=== PATIENT | male | born 1965 | race Caucasian/White ===

== ENCOUNTER 2020-07-12 00:35 | Inpatient (IN) | payer OTHER ==
[~2020-07-12] VITALS: Ht 172.7 cm; Wt 77.1 kg
[2020-07-12 00:48] VITALS: BP 157/74
--- NOTE | 2020-07-12 01:03 | NUR ---
ERMD AT BEDSIDE.
--- NOTE | 2020-07-12 01:06 | NUR ---
55 Y/O TRANS MALE TO FEMALE PRESENTED TO ED C/O EPIGASTRIC PAIN X 2 DAYS. PT STATES SHE WENT TO URGENT CARE AND RECEIVED RX OMEZOPROLE BUT HAS NOT FILLED THE RX YET. PT DENIES N/V/D/FEVER/BODY ACHES / CHILLS. PT ABD FLAT, SOFT AND NONTENDER. NORMOACTIVE BOWEL SOUNDS. A/O X4 , RR EVEN AND UNLABORED, SKIN WARM, PINK AND DRY. PT PLACED IN GOWN. PT RESTING IN BED LOCKED AND IN LOWEST POSITION, HOB ELEVATED, SIDE RAIL X2 FOR PT SAFETY. PMH: HTN, HYPOTHYROIDISM NKA
[2020-07-12] MEDS ORDERED: MORPHINE SULFATE 4 MG/ML SYR IVP ONE ×2 (01:10→03:05)
[2020-07-12] MEDS ORDERED: ONDANSETRON 4 MG/2 ML VIAL IVP ONE ×2 (01:10→03:05)
[2020-07-12 01:47] LABS: BASOPHILS % (AUTO) 0.2 % (0.0-2.0); EOSINOPHILS % (AUTO) 0.2 % (0.0-4.0); HEMOGLOBIN 15.3 g/dL (12.0-18.0); LYMPHOCYTES # (AUTO) 1.1 K/uL (2.0-11.5); LYMPHOCYTES % (AUTO) 7.9 % (20.5-51.1); MEAN CORPUSCULAR HEMOGLOBIN 29 pg (27-31); MEAN CORPUSCULAR HGB CONC 33 g/dL (33-37); MEAN CORPUSCULAR VOLUME 88.1 fL (80-94); MONOCYTES % (AUTO) 7.1 % (1.7-9.3); NEUTROPHILS # (AUTO) 12.1 K/uL (1.8-7.7); NEUTROPHILS % (AUTO) 84.6 % (42.2-75.2); PLATELET COUNT (AUTO) 258 K/uL (140-450); RED BLOOD CELL COUNT(AUTO) 5.22 MIL/uL (4.20-6.10); RED CELL DISTRIBUTION WIDTH 13.3 % (11.6-13.7); WHITE BLOOD COUNT (AUTO) 14.3 K/uL (4.8-10.8)
--- NOTE | 2020-07-12 02:00 | NUR ---
US AT BEDSIDE.
[2020-07-12 02:04] LABS: ALBUMIN 3.8 g/dL (3.4-5.0); ANION GAP 12.5 (8-16); CARBON DIOXIDE 28.4 mmol/L (21-32); CREATININE 0.9 mg/dL (0.6-1.3); POTASSIUM 3.9 mmol/L (3.5-5.1); TOTAL BILIRUBIN 0.6 mg/dL (0.0-1.0)
[2020-07-12 02:17] LABS: APPEARANCE,URINE CLEAR (CLEAR); BILIRUBIN,URINE NEGATIVE (NEGATIVE); BLOOD, URINE NEGATIVE (NEGATIVE); COLOR,URINE YELLOW (YELLOW); LEUKOCYTE ESTERASE ,URINE NEGATIVE (NEGATIVE); NITRITE, URINE NEGATIVE (NEGATIVE); UGLUCOSE NEGATIVE (NEGATIVE)
--- NOTE | 2020-07-12 02:33 | NUR ---
PT RESTING IN BED, LOCKED AND IN LOWEST POSITION, HOB ELEVATED, SIDE RAIL X2 FOR PT SAFETY. VISIBLE RISE AND FALL OF CHEST, RR EVEN AND UNLABORED, SAO2 100%, VSS.
[2020-07-12] MEDS ORDERED: KETOROLAC 30 MG/ML VIAL IVP ONE (02:50)
[2020-07-12] MEDS ORDERED: MECL-303 PO (03:21)
[2020-07-12] MEDS ORDERED: ENAL-197 PO (03:21)
[2020-07-12] MEDS ORDERED: SIME80CT43 PO (03:21)
[2020-07-12] MEDS ORDERED: ORE25 PO (03:21)
[2020-07-12] MEDS ORDERED: CITA40TA13 PO (03:21)
[2020-07-12] MEDS ORDERED: CYCL-654 PO (03:21)
[2020-07-12] MEDS ORDERED: FIO PO (03:21)
[2020-07-12] MEDS ORDERED: MELO15TA11 PO (03:21)
[2020-07-12] MEDS ORDERED: TRAM50TA1 PO (03:21)
--- NOTE | 2020-07-12 03:40 | NUR ---
PT ADMITTED TO TELEMETRY ROOM # 116.
--- NOTE | 2020-07-12 04:15 | NUR ---
PT SLEEPING IN BED, LOCKED AND IN LOWEST POSITION ,HOB ELEVATED, SIDE RAIL X2 FOR PT SAFETY. RR EVEN AND UNLABORED, AROUSABLE TO VERBAL STIMULATION , VSS.
[2020-07-12 04:45] VITALS: BP 147/63
--- NOTE | 2020-07-12 04:45 | NUR ---
Patient will be admitted to care of DR. PIZARRO. Admited to TELEMETRY. Will go to room 116. Belongings list completed. Report to SHAVONNE GERMAIN.
--- NOTE | 2020-07-12 04:45 | NUR ---
RECEIVED FROM ED VIA KELLY, PT Yoko, Yoko O X 4, AMBULATORY PT KISWAHILI CAN SPEAK/ UNDERSTAND GAMBIAN. PT TRANSGENDER AND PREFERRED TO BE CALLED ' ARIES" . PT WITH LEFT AG, PATENT AND INTACT, NO IV INFUSING. MRSA NARES DONE. POC DISCUSSED TO PT, ORIENTED TO UNIT. CALL LIGHT WITHIN REACH.
--- NOTE | 2020-07-12 04:49 | NUR ---
PATIENT CALLED FOR PAIN, EPIGASTIC 08/01. CALLED DR. PIZARRO, AND ORDERED 1 MG DILAUDID ONCE AND A STANDING ORDER OF 2 MG MORPHINE Q 4 PRN FOR SEVERE PAIN -10. WILL CARRY OUT
[2020-07-12] MEDS ORDERED: MORPHINE SULFATE 2 MG/ML SYR IVP PRN ×2 (05:05→06:25)
[2020-07-12] MEDS ORDERED: HYDROmorphone 1 MG/ML AMP IVP SCH (05:05)
[2020-07-12] MEDS ORDERED: HYDROmorphone 1 MG/ML AMP ONE (05:07)
[2020-07-12] MEDS ORDERED: ACETAMINOPHEN 325 MG TAB PO PRN (06:25)
[2020-07-12] MEDS ORDERED: ZOLPIDEM 5 MG TAB PO PRN (06:25)
[2020-07-12] MEDS ORDERED: ONDANSETRON 4 MG/2 ML VIAL IVP PRN (06:25)
[2020-07-12] MEDS ORDERED: DOCUSATE SODIUM 100 MG GELCAP PO PRN (06:25)
[2020-07-12] MEDS ORDERED: LORazepam 2 MG/ML VIAL IM/IVP PRN (06:25)
[2020-07-12] MEDS: DEXT 5% / NACL 0.45% 1,000 ML IV SCH ×2 (06:47→16:25)
--- NOTE | 2020-07-12 06:47 | NUR ---
SCANNED BUT NOT WORKING, VERIFIED W/ PA, RN- D5 12/13 NS AT 100 ML/ HR
--- NOTE | 2020-07-12 07:20 | NUR ---
PT A, A O X 4, PT IN BED, NO RESPIRATORY DISTRESS, DENIES PAIN ,RESTING, WILL ENDORSE TO NEXT SHIFT
--- NOTE | 2020-07-12 07:25 | NUR ---
RECEIVED PT FROM DENTAL SURGEON NURSEMARCELLUS, PT IS AWAKE AND LYING ON THE BED WITH SAFETY PRECAUTION IN PLACE, IV LINE NOTED ON THE LAC G. 20 WITH D5 1/2 NS INFUSING AT 100ML/HR, INTACT, PT IS ON ROOM AIR AND DENIES PAIN AT THIS TIME, WILL CONTINUE TO BE MONITORED
[2020-07-12 08:00] VITALS: BP 144/86
[2020-07-12 08:21] LABS: PROTHROMBIN TIME 9.8 secs (10.8-13.4)
--- NOTE | 2020-07-12 09:10 | NUR ---
PATIENT HAS BEEN SCREENED AND CATEGORIZED MODERATE NUTRITION RISK. PATIENT WILL BE SEEN WITHIN 3-5 DAYS OF ADMISSION. 07/14/20 07/16/[address]
--- NOTE | 2020-07-12 09:40 | NUR ---
PT REQUESTED TO HAVE AN ICE CHIPS NOW.
[2020-07-12] MEDS: HYDROcodone/APAP 5/325 MG 1 TAB TAB PO PRN ×2 (11:52→19:03)
--- NOTE | 2020-07-12 11:52 | NUR ---
PT C/O PAIN RATE OF 6/10 ON THE ABDOMEN AND WAS MEDICATED NOW. WILL MONITOR PT .
[2020-07-12 12:00] VITALS: BP 155/89
[2020-07-12 13:55] LABS: CHOL/HDL RATIO 3.1 (1-4.5); PHOSPHORUS 2.7 mg/dL (2.5-4.9)
[2020-07-12 16:00] VITALS: BP 127/76
--- NOTE | 2020-07-12 16:25 | NUR ---
PT WAS GIVEN A NEW BAG OD D5 1/2 NS NOW.
--- NOTE | 2020-07-12 16:40 | NUR ---
PT IS RESTING, V/S TAKEN AND DENIES PAIN AT THIS TIME.
[2020-07-12] MEDS ORDERED: MECLIZINE 25 MG TAB PO PRN (18:15)
[2020-07-12] MEDS ORDERED: APAP/BUTAL/CAFF 325/50/40 MG 1 TAB PO PRN (18:15)
[2020-07-12 18:53] LABS: BARBITURATE, URINE POSITIVE ng/ml (NEG <=200); BENZODIAZEPINE, URINE NEGATIVE ng/mL (NEG <=200); CANNABINOID, URINE NEGATIVE ng/mL (NEG <=50); COCAINE, URINE NEGATIVE ng/mL (NEG <=300); OPIATE, URINE NEGATIVE ng/mL (NEG <=2000); PHENCYCLIDINE SCREEN,URINE NEGATIVE ng/mL (NEG <=25)
--- NOTE | 2020-07-12 19:25 | NUR ---
ENDORSED PT TO PROMOTION MANAGER, DEBORAH NURSE FOR CONTINUITY OF CARE.
--- NOTE | 2020-07-12 19:26 | NUR ---
RECEIVED BEDSIDE SHIFT REPORT FROM DAY SHIFT NURSE. PATIENT IN BED. AWAKE, ALERT, ORIENTED, AMBULATORY, AND ABLE TO MAKE NEEDS KNOWN. RESPIRATIONS ARE EVEN AND UNLABORED TO ROOM AIR. SKIN IS WARM, DRY, AND INTACT. ABDOMEN IS SOFT AND NON-TENDER. IV ACCESS ON LEFT AC G20 PATENT AND INTACT, IVF INFUSING WELL. PT DENIES ANY PAIN OR DISCOMFORT AT THIS TIME. NO REQUESTS MADE. POC DISCUSSED, PT VERBALIZED UNDERSTANDING. SAFETY MEASURES IN PLACE. CALL LIGHT WITHIN REACH. WILL CONTINUE TO MONITOR.
[2020-07-12 19:45] LABS: FREE T4 (FREE THYROXINE) 0.93 ng/dL (0.76-1.46); THYROID STIMULATING HORMONE 3.25 uIU/mL (0.34-3.74)
[2020-07-12 20:00] VITALS: BP 133/67
--- NOTE | 2020-07-12 20:00 | NUR ---
VITAL SIGNS STABLE. PT IN BED WATCHING TV. DENIES ANY PAIN OR DISCOMFORT AT THIS TIME. PT KEPT COMFORTABLE. CALL LIGHT WITHIN REACH. WILL CONTINUE TO MONITOR.
--- NOTE | 2020-07-12 22:00 | NUR ---
ROUNDS MADE. PT ASLEEP. PT NOT IN DISTRESS. SAFETY MEASURES IN PLACE, CALL LIGHT WITHIN REACH. WILL CONTINUE TO MONITOR.
[2020-07-13] VITALS: BP 111/69
--- NOTE | 2020-07-13 00:16 | NUR ---
VITAL SIGNS STABLE. PT IN BED USING PHONE. PT DENIES ANY PAIN OR DISCOMFORT AT THIS TIME. KEPT COMFORTABLE. CALL LIGHT WITHIN REACH. WILL CONTINUE TO MONITOR.
--- NOTE | 2020-07-13 02:10 | NUR ---
PT ASLEEP. PT NOT IN DISTRESS. RESPIRATIONS EVEN AND UNLABORED. CALL LIGHT WITHIN REACH. WILL CONTINUE TO MONITOR.
[2020-07-13] MEDS: HYDROcodone/APAP 5/325 MG 1 TAB TAB PO PRN ×2 (03:32→11:52)
--- NOTE | 2020-07-13 03:33 | NUR ---
PT VERBALIZED ABDOMINAL PAIN 05/01. PRN PAIN MEDICATION GIVEN ORDERED. WILL CONTINUE TO MONITOR.
[2020-07-13] MEDS: DEXT 5% / NACL 0.45% 1,000 ML IV SCH ×3 (03:55→21:30)
[2020-07-13 04:00] VITALS: BP 107/72
--- NOTE | 2020-07-13 06:34 | NUR ---
PT SLEEPING COMFORTABLY. NO S/SX OF PAIN NOTED. PT KEPT SAFE AND COMFORTABLE. WILL CONTINUE TO MONITOR.
--- NOTE | 2020-07-13 07:06 | NUR ---
GAVE BEDSIDE SHIFT REPORT TO DAY SHIFT NURSE. PT IS IN STABLE CONDITION.
--- NOTE | 2020-07-13 07:08 | NUR ---
RECEIVED REPORT FROM NIGHT NURSE, PT IS SLEEPING ON ROOM AIR, AAOX4, IV SITES ON LEFT AC RUNNING A D5 1/2NSS AT 100. SINUS RHYTHM AND FULL LIQUID DIET. SAFETY MEASURES IN PLACE AND CALL LIGHT WITHIN REACH, WILL CONTINUE TO MONITOR.
[2020-07-13 08:00] VITALS: BP 100/60
[2020-07-13] MEDS: SIMETHICONE 80 MG TAB.CHEW PO SCH (08:27)
[2020-07-13] MEDS: hydroCHLOROthiazide 25 MG TAB PO SCH (08:27)
[2020-07-13] MEDS: traMADol 50 MG TAB PO SCH (08:28)
[2020-07-13] MEDS: CITALOPRAM 20 MG TAB PO SCH (08:28)
[2020-07-13] MEDS: ENALAPRIL 10 MG TAB PO SCH (08:29)
--- NOTE | 2020-07-13 08:35 | NUR ---
MEDICATIONS DUE GIVEN TO PATIENT AND CHECK VITAL SIGNS PRIOR TO MEDICATIONS BP 100/60 SD 60 TEMP. 97.6 AND RR 18. PATIENT HAS PAIN IN THE RIGHT LEG WHEN TOUCH BUT PT VERBALIZES TOLERABLE PAIN. SAFETY MEASURES IN PLACE, CALL LIGHT WITHIN REACH. WILL CONTINUE TO MONITOR.
--- NOTE | 2020-07-13 11:36 | NUR ---
PATIENT WAS TRANSFERRED FROM TELEMETRY TO [facility] AT THIS TIME. PT IS STABLE,
--- NOTE | 2020-07-13 11:57 | NUR ---
MADE ROUNDS AT THIS TIME PATIENT COMPLAINS OF ABDOMINAL PAIN 05/31. PT IS RELAXED.
--- NOTE | 2020-07-13 11:58 | NUR ---
PAIN MEDICATION GIVEN NORCO CHECK VITAL SIGNS PRIOR TO MEDICATION. BP 106/53 CO 59. SAFETY MEASURES IN PLACE AND CALL LIGHT WITHIN REACH. WILL CONTINUE TO MONITOR.
[2020-07-13 12:00] VITALS: BP 106/63
--- NOTE | 2020-07-13 13:43 | NUR ---
PAIN REASSESSMENT DONE AND ABDOMINAL PAIN DECREASED FROM 7/10 - 4/.
[2020-07-13 14:20] LABS: BASOPHILS % (AUTO) 0.4 % (0.0-2.0); EOSINOPHILS # (AUTO) 0.2 K/uL (0-0.4); EOSINOPHILS % (AUTO) 1.8 % (0.0-4.0); HEMATOCRIT 42.8 % (36-52); HEMOGLOBIN 14.1 g/dL (12.0-18.0); LYMPHOCYTES # (AUTO) 1.2 K/uL (2.0-11.5); LYMPHOCYTES % (AUTO) 14.9 % (20.5-51.1); MEAN CORPUSCULAR HEMOGLOBIN 30 pg (27-31); MEAN CORPUSCULAR HGB CONC 33 g/dL (33-37); MEAN CORPUSCULAR VOLUME 89.2 fL (80-94); MONOCYTES # (AUTO) 0.8 K/uL (0.8-1.0); MONOCYTES % (AUTO) 9.4 % (1.7-9.3); NEUTROPHILS % (AUTO) 73.5 % (42.2-75.2); PLATELET COUNT (AUTO) 231 K/uL (140-450); RED CELL DISTRIBUTION WIDTH 13.3 % (11.6-13.7); WHITE BLOOD COUNT (AUTO) 8.2 K/uL (4.8-10.8)
[2020-07-13 14:43] LABS: ANION GAP 9.2 (8-16); CARBON DIOXIDE 29.4 mmol/L (21-32); POTASSIUM 3.6 mmol/L (3.5-5.1)
[2020-07-13 14:47] LABS: MAGNESIUM 2.1 mg/dL (1.8-2.4); PHOSPHORUS 3.2 mg/dL (2.5-4.9)
--- NOTE | 2020-07-13 15:37 | NUR ---
MADE ROUNDS AT THIS TIME, PT IS AWAKE AND NO DISTRESS NOTED, DENIES PAIN.SAFETY MEASURES IN PLACE AND CALL LIGHT WITHIN REACH. WILL CONTINUE TO MONITOR.
[2020-07-13 16:00] VITALS: BP 92/56
--- NOTE | 2020-07-13 19:15 | NUR ---
ENDORSED PT TO NIGHT NURSE FOR CONTINUITY OF CARE, PT IS STABLE.
--- NOTE | 2020-07-13 19:25 | NUR ---
RECEIVED BEDSIDE REPORT FROM DAY SHIFT NURSE FOR CONTINUITY OF CARE. PT IS AWAKE AND ALERT. A& O X4. ON RA WITH BREATHING UNLABORED. PT AMBULATES TO THE RESTROOM WITH STANDARD, UNIVERSAL PRECAUTIONS. SKIN IS WARM, DRY, AND INTACT. IV IS IN THE LEFT AC 20 GAUGE RUNNING D5 HALF NS AT 100 ML PER HOUR PER ORDER. IV IS PATENT AND INTACT. LABS FOR LIPASE YESTERDAY WAS 1089 FOR DX OF ACUTE PANCREATITIS. PLAN OF CARE WAS DISCUSSED. BED IS IN THE LOWEST POSITION AND CALL LIGHT IS WITHIN REACH.
[2020-07-13 20:00] VITALS: BP 91/54
[2020-07-13] MEDS: PANTOPRAZOLE 40 MG INJ VIAL IVP SCH (21:29)
--- NOTE | 2020-07-13 21:32 | NUR ---
PROTONIX WAS NOT GIVEN ON DAY SHIFT AT 1805 THEREFORE I GAVE THE PROTONIX NOW ON MY SHIFT. IV SOLUTION BAG WAS REPLACED AND IV WAS FLUSHED. IV IS PATENT AND INTACT. PT DENIES ANY PAIN AND IS STABLE AT THIS TIME.
--- NOTE | 2020-07-13 23:46 | NUR ---
PT IS AWAKE AND ALERT. WATCHING TV IN SEMI FOWLERS POSITION. BREATHING IS UNLABORED AND PT DENIES PAIN. PT IS STABLE AT THIS TIME, NEEDS ARE MET.
[2020-07-14] VITALS: BP 94/62
--- NOTE | 2020-07-14 01:10 | NUR ---
PT REQUESTED SNACKS AND A DRINK. PT WAS PROVIDED WITH THESE ITEMS AND IS AWAKE AND ALERT. A&O X 4. ON RA WITH BREATHING UNLABORED. PT IS STABLE AT THIS TIME.
[2020-07-14] MEDS: DEXT 5% / NACL 0.45% 1,000 ML IV SCH (02:58)
[2020-07-14] MEDS: HYDROcodone/APAP 5/325 MG 1 TAB TAB PO PRN ×2 (03:10→10:40)
--- NOTE | 2020-07-14 03:10 | NUR ---
PT WAS GIVEN NORCO PRN FOR PAIN IN THE STOMACH AT A SCALE OF 6/10. PT DESCRIBES THE PAIN ACHING. WILL CONTINUE TO MONITOR PAIN.
--- NOTE | 2020-07-14 04:10 | NUR ---
PT IS ASLEEP. NO PAIN IS NOTED. NO DISTRESS NOTED. CHEST RISE AND FALL IS SYMMETRICAL. IV IS PATENT AND INFUSING FLUIDS. BED IS IN LOWEST POSITION AND CALL LIGHT IS WITHIN REACH.
[2020-07-14 05:59] LABS: BASOPHILS % (AUTO) 0.6 % (0.0-2.0); EOSINOPHILS # (AUTO) 0.2 K/uL (0-0.4); EOSINOPHILS % (AUTO) 3.5 % (0.0-4.0); HEMATOCRIT 40.4 % (36-52); HEMOGLOBIN 13.5 g/dL (12.0-18.0); LYMPHOCYTES # (AUTO) 1.5 K/uL (2.0-11.5); LYMPHOCYTES % (AUTO) 24.4 % (20.5-51.1); MEAN CORPUSCULAR HEMOGLOBIN 30 pg (27-31); MEAN CORPUSCULAR HGB CONC 33 g/dL (33-37); MEAN CORPUSCULAR VOLUME 88.7 fL (80-94); MONOCYTES # (AUTO) 0.6 K/uL (0.8-1.0); MONOCYTES % (AUTO) 8.7 % (1.7-9.3); NEUTROPHILS % (AUTO) 62.8 % (42.2-75.2); PLATELET COUNT (AUTO) 242 K/uL (140-450); RED BLOOD CELL COUNT(AUTO) 4.55 MIL/uL (4.20-6.10); RED CELL DISTRIBUTION WIDTH 13.1 % (11.6-13.7); WHITE BLOOD COUNT (AUTO) 6.4 K/uL (4.8-10.8)
[2020-07-14 06:19] LABS: CARBON DIOXIDE 30.3 mmol/L (21-32); CREATININE 0.7 mg/dL (0.6-1.3); POTASSIUM 3.3 mmol/L (3.5-5.1)
[2020-07-14 06:38] LABS: MAGNESIUM 1.8 mg/dL (1.8-2.4)
[2020-07-14 07:04] LABS: PHOSPHORUS 2.8 mg/dL (2.5-4.9)
--- NOTE | 2020-07-14 07:05 | NUR ---
ENDORSED PT TO DAY SHIFT NURSE FOR CONTINUITY OF CARE. PT IS STABLE AT THIS TIME. PLAN OF CARE DISCUSSED.
--- NOTE | 2020-07-14 07:06 | NUR ---
RECEIVED REPORT FROM HADOOP DEVELOPER NURSE. PATIENT LYING DOWN IN BED SLEEPING, AROUSABLE BY VOICE. NO DISTRESS NOTED. DENIES ANY PAIN. AAOX4, CALM, COOPERATIVE, SKIN COLOR APPROPRIATE TO ETHNICITY, WARM TO TOUCH. SKIN INTACT. IV SITE INTACT, PATENT, AND INFUSING IVF PER MD ORDERS. RESPIRATIONS EVEN, UNLABORED, ON ROOM AIR. REVIEWED PLAN OF CARE WITH PATIENT. PATIENT VERBALIZED UNDERSTANDING. SAFETY MEASURES IN PLACE, CALL LIGHT WITHIN REACH. WILL CONTINUE TO MONITOR.
[2020-07-14 08:00] VITALS: BP 110/65
[2020-07-14] MEDS ORDERED: POTASSIUM CHLORIDE 40 MEQ, LIDOCAINE MPF 1% 25 MG in NACL 0.9% 250 ML IV SCH (09:00)
[2020-07-14] MEDS: hydroCHLOROthiazide 25 MG TAB PO SCH (09:00)
[2020-07-14] MEDS: ENALAPRIL 10 MG TAB PO SCH (09:00)
[2020-07-14] MEDS: traMADol 50 MG TAB PO SCH ×2 (09:00→09:17)
[2020-07-14] MEDS ORDERED: LACTULOSE 20 GM/30 ML UDC PO SCH (09:00)
[2020-07-14] MEDS: PANTOPRAZOLE 40 MG INJ VIAL IVP SCH (09:16)
[2020-07-14] MEDS: CITALOPRAM 20 MG TAB PO SCH (09:17)
[2020-07-14] MEDS: SIMETHICONE 80 MG TAB.CHEW PO SCH (09:18)
--- NOTE | 2020-07-14 09:25 | NUR ---
SCHEDULED MEDICATIONS DUE GIVEN. WILL CONTINUE TO MONITOR.
--- NOTE | 2020-07-14 10:41 | NUR ---
PATIENT COMPLAINS OF EPIGASTRIC PAIN, NORCO GIVEN AT THIS TIME. WILL CONTINUE TO MONITOR.
--- NOTE | 2020-07-14 14:35 | NUR ---
DISCHARGE INSTRUCTIONS PROVIDED TO PATIENT IN PREFERRED LANGUAGE OF [place]GALI, USING PRINTED CIRCUIT [employer]ARDS [employer]ASMA ETCHER NUMBER [id number]. INSTRUCTIONS ON FOLLOW-UP WITH PCP IN 3-5 DAYS, MEDICATION REGIMEN AND SIDE EFFECTS, AND PANCREATITIS DIET MANAGEMENT. ANSWERED ALL OF PATIENT'S QUESTIONS REGARDING DISCHARGE. PATIENT VERBALIZED COMPLETE UNDERSTANDING. IV SITE REMOVED WITH MINIMAL BLOOD AND LUMEN COMPLETELY INTACT. ID BANDS REMOVED. ESCORTED PATIENT DOWN TO LOBBY VIA WHEELCHAIR. PATIENT DISCHARGED AT THIS TIME IN STABLE CONDITION VIA PRIVATE VEHICLE.
== END 2020-07-14 14:44 | disposition home or self-care (01) | DRG 439 ==
LOC: MED 00:35 → MTU 03:33
PROVIDERS: ADMIT Family Medicine; ATTEND Family Medicine
DX: K85.90 Acute pancreatitis without necrosis or infection, unspecified (principal); J98.11 Atelectasis; I10 Essential (primary) hypertension; G89.4 Chronic pain syndrome; E87.6 Hypokalemia; F17.210 Nicotine dependence, cigarettes, uncomplicated; K72.90 Hepatic failure, unspecified without coma; F19.10 Other psychoactive substance abuse, uncomplicated; M54.5 Low back pain; Z79.899 Other long term (current) drug therapy; Z98.82 Breast implant status
CPT/HCPCS: 36415; 71045; 76705; 80048; 80053; 80305; 81003; 82140; 82150; 83036; 83690; 83735; 83880; 84100; 84132; 84439; 84443; 84484; 85025; 85610; 85730; 87081; 93005; 96374; 96375; 99285; C9113; J1170; J2001; J2270; J2405; J3480; J7030; Q0092

== ENCOUNTER 2023-10-22 21:20 | Emergency (ER) | payer OTHER ==
[~2023-10-22] VITALS: Ht 172.7 cm; Wt 77.1 kg
[~2023-10-22 21:20] MED LIST: ACET-2619 PO; CIPR500T4 PO; CITA40TA13 PO; CYCL-654 PO; ENAL-197 PO; FIO PO; HYDR-4004 PO; IBUP-2213 PO; MECL-303 PO; MELO15TA11 PO; NORCO 5/325 MG PO; SIME80TA34 PO; TRAM-748 PO; [UNRECOGNIZED DRUG - OTHER] PO
[2023-10-22 21:25] VITALS: BP 112/78; PULSE 86; RESP 17; TEMP 97.8; O2SAT 94
[2023-10-22 23:06] LABS: BILIRUBIN,URINE 2+ (NEGATIVE); BLOOD, URINE NEGATIVE (NEGATIVE); LEUKOCYTE ESTERASE ,URINE 2+ (NEGATIVE); NITRITE, URINE POSITIVE (NEGATIVE); PH,URINE 5.5 (5.0-9.0); PROTEIN,URINE 2+ (NEGATIVE); UGLUCOSE TRACE (NEGATIVE); UROBILINOGEN,URINE >=8.0 EU/dL (0.2 - 1)
[2023-10-22 23:07] LABS: APPEARANCE,URINE SLIGHTLY CLOUDY (CLEAR); COLOR,URINE AMBER (YELLOW)
[2023-10-22 23:16] LABS: ICTOTEST NEGATIVE (NEGATIVE)
[2023-10-22 23:18] LABS: BACTERIA,URINE 1+ /HPF (None Seen); MUCUS,URINE None Seen /LPF (None Seen); RBC,URINE 0-5 /HPF (0-5); SQUAMOUS EPITHELIAL CELL,UR 0-3 (FEW) /LPF (0-3 (FEW))
[2023-10-22] MEDS ORDERED: ACET-8001 PO (23:32)
[2023-10-22] MEDS ORDERED: PYR100 PO (23:32)
[2023-10-22] MEDS ORDERED: CARB15DR61 RIGHT EAR (23:32)
[2023-10-22] MEDS ORDERED: CEPH-588 PO (23:32)
[2023-10-22 23:34] VITALS: BP 115/71; PULSE 73; RESP 14; TEMP 98.1; O2SAT 100
== END 2023-10-22 23:34 | disposition home or self-care (01) ==
LOC: MED 21:20
DX: H61.21 Impacted cerumen, right ear (principal); N39.0 Urinary tract infection, site not specified; I10 Essential (primary) hypertension; E03.9 Hypothyroidism, unspecified; Z79.899 Other long term (current) drug therapy
CPT/HCPCS: 69210; 81001; 87086; 99284